=== PATIENT | female | born 2005 | race Caucasian/White ===

== ENCOUNTER 2025-09-13 06:33 | Emergency (ER) | payer OTHER ==
[~2025-09-13] VITALS: Ht 147.3 cm; Wt 71.8 kg
[2025-09-13 06:40] VITALS: O2SAT 100
[2025-09-13 07:31] LABS: BASOPHILS % 0.6 % (0.0-2.0); EOSINOPHILS % 2.3 % (0.0-5.0); HEMATOCRIT. 40.4 % (36.0-48.0); HEMOGLOBIN. 13.4 g/dL (12.0-16.0); LYMPHOCYTES % 29.6 % (20.0-50.0); MEAN PLATELET VOLUME 8.7 fl (7.4-10.4); MONOCYTES % 5.0 % (2.0-8.0); NEUTROPHILS % 62.5 % (40.0-76.0); PLATELET 239 x1000/uL (130-400); RED BLOOD CELL COUNT 4.95 mill/uL (4.2-5.4); RED CELL DISTRIBUTION WIDTH 14.1 % (11.6-14.6)
[2025-09-13 07:50] LABS: CREATININE 0.6 mg/dL (0.6-1.0); UREA NITROGEN BLOOD 14 mg/dL (9-23)
[2025-09-13 07:52] LABS: ASPARTATE AMINOTRANSFERASE 43 IU/L (<34)
[2025-09-13 07:53] LABS: BILIRUBIN TOTAL 0.8 mg/dL (0.1-1.0); PROTEIN TOTAL 7.8 g/dL (6.0-8.3)
[2025-09-13 07:54] LABS: HCG SCREEN NEGATIVE
[2025-09-13] MEDS: IBUPROFEN 600MG TABLET PO ONE (08:10)
[2025-09-13 09:22] VITALS: BP 117/76; PULSE 75; RESP 16; TEMP 36.9; O2SAT 100
== END 2025-09-13 09:24 | disposition home or self-care (01) ==
LOC: ER 06:33
DX: N93.9 Abnormal uterine and vaginal bleeding, unspecified (principal)
CPT/HCPCS: 36415; 76830; 76856; 80053; 84703; 85025; 86850; 86900; 99285